=== PATIENT | male | born 1995 | race Caucasian/White ===

== ENCOUNTER 2019-08-31 06:18 | Day surgery (SDC) | payer BC ==
[2019-08-30 12:54] VITALS: BMI 19.5
[~2019-08-31 06:18] MED LIST: LACTATED RINGERS SOLUTION 1,000 ML IV SCH; ONDANSETRON 4 MG/2 ML VIAL IVPUSH PRN; PROMETHAZINE HCL 25 MG/1 ML VIAL IVPB PRN; oxyCODONE HCL 5 MG TABLET PO PRN
[2019-08-31] MEDS ORDERED: MIDAZOLAM HCL 2 MG/2 ML SINGLE DOSE VIAL ONE ×2 (07:12)
[2019-08-31] MEDS ORDERED: SODIUM CHLORIDE 0.9% P/F 10 ML VIAL IJ ONE (07:13)
[2019-08-31] MEDS ORDERED: ceFAZolin SODIUM 1 GM VIAL ONE (07:14)
[2019-08-31] MEDS ORDERED: SUCCINYLCHOLINE CHLORIDE 200 MG/10 ML SYRINGE ONE (07:15)
[2019-08-31] MEDS ORDERED: PROPOFOL 20 ML ONE ×2 (07:15)
[2019-08-31] MEDS ORDERED: DEXAMETHASONE SOD PHOSPHATE 4 MG/1 ML VIAL ONE (07:16)
[2019-08-31] MEDS ORDERED: DESFLURANE GAS 240 ML BOTTLE IH ONE (07:17)
[2019-08-31] MEDS ORDERED: SEVOFLURANE 250 ML BTL ONE ×2 (07:17→09:00)
[2019-08-31] MEDS ORDERED: ROCURONIUM BROMIDE 100 MG/10 ML VIAL ONE (07:19)
[2019-08-31] MEDS ORDERED: ACETAMINOPHEN INJECTION 100 ML IVPB ONE (07:28)
[2019-08-31] MEDS ORDERED: LIDOCAINE 1%/EPI 1:100000 (20 ML MULTI DOSE VIAL) ONE (07:29)
[2019-08-31] MEDS ORDERED: ceFAZolin SODIUM 1 GM VIAL IVPB ONE (08:22)
[2019-08-31] MEDS ORDERED: COCAINE HCL 4% TOPICAL SOLUTION 4 ML BOTTLE TP ONE ×2 (08:30→08:45)
[2019-08-31] MEDS ORDERED: EPHEDRINE SULFATE/0.9% NACL/PF 50 MG/10 ML SYRINGE NR ONE (08:35)
[2019-08-31] MEDS ORDERED: BACITRACIN 15 GM TUBE TOPICAL OINTMENT ONE (10:12)
[2019-08-31] MEDS ORDERED: BACITRACIN 15 GM TUBE TOPICAL OINTMENT TP ONE (10:45)
--- NOTE | 2019-08-31 11:24 | OP ---
Operative Note - Note: Operative Date: 08/31/19 Pre-Operative Diagnosis: Nasal airway obstruction, Deviation of Nasal Septum, Hypertrophy of the Left Inferior Turbinate, Large Dorsal Hump Operation: Open Rhinoplasty, SMR Nasal Septum, Reduction of Left Inferior Turbinate. Post-Operative Diagnosis: Same as Pre-op Surgeon: Roberto Jiang Anesthesia: General Specimens Removed: Portion of Nasal Septum Operative Report Dictated: Yes
[2019-08-31 13:36] VITALS: BP 133/71; PULSE 93; TEMP 98
--- NOTE | 2019-08-31 22:22 | OP ---
DATE OF OPERATION: 08/31/2019 PREOPERATIVE DIAGNOSIS: Nasal airway obstruction with deviation of nasal septum, hypertrophy of the left inferior turbinate, and large posttraumatic dorsal hump. POSTOPERATIVE DIAGNOSIS: Nasal airway obstruction with deviation of nasal septum, hypertrophy of the left inferior turbinate, and large posttraumatic dorsal hump. PROCEDURE PERFORMED: Open rhinoplasty with submucosal resection of the nasal septum, reduction of the left inferior turbinate, and reduction of large dorsal hump. SURGEON: Roberto Jiang MD. ANESTHESIA: General via endotracheal tube. BRIEF HISTORY: The patient is a 24-year-old male who had a history of multiple nasal traumas while wrestling years ago as a high school student. He presents with difficulty breathing due to the right nasal airway and exam shows a deviation of the central portion of the septum to the right . There was in addition compensatory left inferior turbinate hypertrophy. The patient is now preoperative for correction of these issues. PROCEDURE: The patient was placed on the operating table in supine position and general anesthesia was administered by the anesthesiologist. The area of the face was prepped and draped in the usual sterile fashion. The nose was circumferentially injected and cocaine soaked pledgets were used bilaterally. After allowing sufficient time for the epinephrine to take effect, a columella chevron-type incision was designed and made with a number 11-scalpel blade. Bilateral rim incisions were connected to this centrally. The nasal tip skin was then elevated off the lower nasal cartilages using a converse scissors. Hemostasis was achieved with the electrocautery. The dissection continued superiorly, skeletonizing the nasal dorsum. The upper lateral cartilages were from the septum and trimmed. A bone rasp was used initially to lower the dorsal hump, and a cartilage rasp was used to smooth out the junction between the nasal septal bone and cartilage. The lateral nasal bones were then further injected on both inner and outer surfaces with 1% lidocaine with epinephrine, and bilateral peripheral incisions were made. A bilateral low to high fractures were made to close the resulting open roof deformity. Additional trimming of both bone and cartilage continued until a satisfactory reduction was obtained. A septal incision was made through an endonasal approach within the right nasal airway and a submucous resection was then performed on both sides from this incision. A modest segment of septal cartilage was then removed consisting of the portion deviated to the right. The septal mucosa was then reapproximated using a 4-0 chromic suture on a short, straight needle in a horizontal mattress fashion. The left inferior turbinate hypertrophy was felt to be mostly mucosal, so cauterization was performed using a 27-gauge needle and the electrocautery. The hemostasis was further achieved with the electrocautery, and the skin was now reflected back over the tip of the nose after several spanning sutures were placed in the lower lateral cartilages to equalize their height. Columella incision was closed with a number 7-0 nylon suture in simple interrupted fashion, and bilateral rim incisions were closed with 4-0 chromic suture in simple fashion. Simple dressings were applied and both nares were packed. A dorsal Oumar-type splint was used after the dorsum was taped with Steri-Strips. The patient was then awoken from anesthesia without difficulty and taken from the operating room to the recovery room in satisfactory condition having tolerated the procedure well. Moises [id number]
--- NOTE | 2019-09-04 17:38 | PATH ---
Surgical Pathology Report Patient Name: LULU ALCOCER Med. Rec. #: [id number] /Age/Gender: 1995 (Age: 24) / M Account: [id number] Location: [facility] SUR[facility]ICAL Taken: 08/31/2019 Received: 08/31/2019 Reported: 09/04/2019 Physicians: Roberto Jiang M.D. Specimen(s) Received SEPTUM Clinical History Hypertrophy inferior turbinate, airway obstruction, deviated septum Final Diagnosis SEPTUM, RESECTION: PORTIONS OF CARTILAGE, CONSISTENT WITH SEPTUM. Electronically Signed Davin Thomas M.D. Gross Description Received in formalin labeled "septum," is a 3.0 x 2.0 x 0.3 cm aggregate of sharif fragments of cartilage. Calender Roll Operator portions are submitted in one cassette. /08/31/2019 [facility]08/31/2019
== END 2019-08-31 13:40 | disposition home or self-care (01) ==
LOC: JASU-SURG 06:18
PROVIDERS: ATTEND Plastic Surgery
PROC: 09BM0ZZ Excision of Nasal Septum, Open Approach (ICD-10-PCS; 2019-08-31)
PROC: 09BL0ZZ Excision of Nasal Turbinate, Open Approach (ICD-10-PCS; 2019-08-31)
PROC: 09QK0ZZ Repair Nasal Mucosa and Soft Tissue, Open Approach (ICD-10-PCS; principal; 2019-08-31 08:00)
DX: J34.2 Deviated nasal septum (principal); J34.3 Hypertrophy of nasal turbinates; J98.8 Other specified respiratory disorders
CPT/HCPCS: 88302-TC; 88311-TC; 94760; J0131